=== PATIENT | female | born 1965 | race Caucasian/White ===

== ENCOUNTER 2021-02-13 11:34 | Emergency (ER) | payer OTHER ==
[2021-02-13] MEDS ORDERED: Aspirin 81 MG Tab.Chew PO ONE (11:42)
[2021-02-13] MEDS ORDERED: Ondansetron 4 MG/2 ML SDV IVPUSH ONE (11:42)
[2021-02-13] MEDS ORDERED: Morphine 4 MG/ML Syringe IVPUSH ONE (11:42)
[2021-02-13] MEDS ORDERED: Sodium Chloride 0.9% 2.5 ML Syringe FLUSH PRN (11:43)
[2021-02-13] MEDS ORDERED: Sodium Chloride 0.9% 10 ML Syringe FLUSH PRN (11:43)
[2021-02-13] MEDS ORDERED: Sodium Chloride 0.9% 1,000 ML IV ONE (11:44)
--- NOTE | 2021-02-13 11:46 | PCM.EKG ---
#1 Interpretation EKG Date: 02/13/21 Time: 11:45 EKG Interpretation Comments: EKG: sinus tach, nonspecific ST/T changes, Rate - 103
--- NOTE | 2021-02-13 11:58 | EDM.PDOC ---
ED HPI GENERAL MEDICAL PROBLEM - General Chief Complaint: Chest Pain Stated Complaint: CHEST PAIN Time Seen by Provider: 02/13/21 11:45 Source of Information: Reports: Patient History Limitations: Reports: No Limitations - History of Present Illness INITIAL COMMENTS - FREE TEXT/NARRATIVE: HISTORY AND PHYSICAL: History of present illness: Patient is a 55-year-old female who presents to the emergency room with complaints of left sided chest pain that started about 20 minutes prior to arrival. She states she had just finished eating and initially thought that she had some reflux, but states this pain is different than previous reflux symptoms. Describes the pain as a sharp stabbing pain that radiates into her back. She states nothing is making the pain better or worse. She is anxious and tearful. She states she does have a history of tachycardia, has seen a cardiolgoist for this, but has not had any further problems with this. She has had a full cardiac work up (stress test and "cardiac scan") which was normal. Patient denies any fever, chills, headache, change in vision, syncope or near syncope. Denies any shortness of breath or cough. Denies any abdominal pain, nausea, vomiting, diarrhea, constipation or dysuria. Has not noted any blood in urine or stool. Patient has been eating and drinking appropriately. No history of alcohol or drug abuse. Maternal history of heart disease. Review of systems: As per history of present illness and below otherwise all systems reviewed and negative. Past medical history: As per history of present illness and as reviewed below otherwise noncontributory. Surgical history: As per history of present illness and as reviewed below otherwise noncontributory. Social history: See social history for further information Family history: As per history of present illness and as reviewed below otherwise noncontributory. Physical exam: General: Well developed and well nourished 55 year old female. Alert and orie ntated x 3. Anxious and tearful. Nontoxic in appearance and in no acute distress. Vital signs are stable and have been reviewed by me. Nursing notes were reviewed. HEENT: Atraumatic, normocephalic, pupils equal and reactive bilaterally, negative for conjunctival pallor or scleral icterus, mucous membranes moist, throat clear, neck supple, nontender, trachea midline. No drooling or trismus noted. No meningeal signs. No hot potato voice noted. Lungs: Clear to auscultation bilaterally. No wheezes, rales, or rhonchi. Chest nontender. Normal work of breathing, no accessory muscles used. Heart: S1S2, tachycardia with rate of 105, regular rhythm without overt murmur, gallops, or rubs. No JVD. No peripheral edema Abdomen: Soft, nondistended, nontender. Normoactive bowel sounds. Negative for masses or costovertebral tenderness. Pelvis: Stable nontender. Skin: Intact, warm, dry. No lesions or rashes noted. Hematologic: No petechiae or purpra. Mucosa appropriate color and normal nail bed color and refill. Extremities: Atraumatic, moves all extremities per self without difficulty or deficits, negative for cords or calf pain. Neurovascular unremarkable. Neuro: Awake, alert, oriented. Cranial nerves II through XII unremarkable. Cerebellum unremarkable. Motor and sensory unremarkable throughout. Exam nonfocal. Psychiatric: Mood and affect are appropriate. Normal thought process. Answering questions appropriately. Notes: *This patient was seen and evaluated during the 2019 SARS-CoV-2 novel coronavirus pandemic period. Community viral transmission is ongoing at time of this encounter and the emergency department is operating under pandemic response procedures. Patient is a 55 year old female who presents to the ED with complaints of intense chest pain to her left anterior chest that radiates into her back. She appears anxious and tearful. She has no personal history of heart disease. States she has GERD, felt this could be GERD related because pain started after eating, but this pain is worse than she's experienced in the past. Physical exam is unremarkable with the exception that she appears uncomfortable. Will do cardiac workup and CT her chest to rule out dissection. HEART Score for Major Cardiac Events: History: 1 EK Age: 1 Risk factors: 1 Initial troponin: 0 Score: 3 Wells' Criteria for Pulmonary Embolism Positive indicators: Heart rate Points: Low risk group Patient states her abdomen is starting to "cramp up". Her chest pain has improved after the IV morphine. I will extend the CT to abd/pelvis at this time. Her labs show an elevation in her Lipase. She has received over a liter of IV fluids, no nausea or vomiting. CT of chest/abdomen/pelvis shows no aortic dissection or other acute aortic abnormality. Large left-sided sliding hiatal hernia. There is also a smaller right-sided paraesophageal hernia which is filled with air and fluid. There is no gastric wall thickening or extraluminal air. This could potentially be the cause of the patient`s pain. Recommend surgery consultation. Cholelithiasis. Colonic diverticulosis. Pancrease and liver are unremarkable. Spoke with Dr Sesar Woods about CT results, patient can follow up with general surgeon who performs Mario Fundoplication. Patient's second troponin is within normal limits. She has been pain-free since the morphine, no chest or abdominal pain. Pain is not returned during her ER visit. I have talked with the patient about today's findings, in addition to providing specific details for plan of care. I did offer her admission which she declines. Reassessment at the time of disposition demonstrates that the patient is in no acute distress. They do travel back and forth between [place] and [place], she states she will follow up for general surgery. The patient is stable for discharge, counseling was provided and we discussed in great detail signs and symptoms that would prompt them to return to the Emergency Department. Medication, follow up and supportive care measures were reviewed and discussed. Voices understanding and is agreeable to plan of care. Denies any further questions or concerns at this time. Diagnostics: CBC, CMP, UA, Troponin, EKG, Chest/Abd/Pelvic CT Therapeutics: IV fluids, Morphine, ASA Prescription: Impression: Chest pain nonspecific Hiatal hernia Plan: 1. You were evaluated today on an emergent basis. Your lab work, cardiac enzymes, EKG and chest x-ray are within normal limits. Your CT does show a large left-sided sliding hiatal hernia. There is also a small right-sided paraesophageal hernia. This could potentially cause your epigastric/chest pain. 2. You can alternate Tylenol and ibuprofen as needed for pain and fever management. You could start an 81 mg aspirin once daily if not contraindicated. 3. We encourage you to follow up with your primary care provider and/or recommended specialist in the next few days for re-evaluation and further care/management. 4. If your symptoms should worsen, new symptoms develop or any of the signs and symptoms we discussed should arise please return to the emergency room or call 911 (if needed). Definitive disposition and diagnosis as appropriate pending reevaluation and review of above. chest Pain Score (Numeric/FACES): 7 - Related Data Allergies Allergy/AdvReac Type Severity Reaction Status Date / Time antibiotics Allergy Itching Uncoded 02/13/21 11:44 Home Meds: Home Meds . [No Known Home Meds] 02/13/21 [History] ED ROS GENERAL - Review of Systems Review Of Systems: Comprehensive ROS is negative, except as noted in HPI. ED EXAM, GENERAL - Physical Exam Exam: See Below (See dictation) Course - Vital Signs Last Recorded V/S: Last Vital Signs Temp 98 F 02/13/21 11:41 Pulse 105 H 02/13/21 11:41 Resp 19 02/13/21 11:41 BP 153/101 H 02/13/21 11:41 Pulse Ox 98 02/13/21 11:41 - Orders/Labs/Meds Orders: Active Orders 24 hr Category Date Time Status EKG Documentation Completion [RC] STAT Care 02/13/21 11:43 Active CORONAVIRUS COVID-19 LENARD [MOLEC] Stat Lab 02/13/21 11:44 Ordered UA RFX TERRANCE AND CULT IF INDIC [URIN] Stat Lab 02/13/21 11:44 Ordered Sodium Chloride 0.9% [Normal Saline] 1,000 ml Med 02/13/21 11:44 Active IV STAT Sodium Chloride 0.9% [Saline Flush] Med 02/13/21 11:43 Active 10 ml FLUSH ASDIRECTED PRN Sodium Chloride 0.9% [Saline Flush] Med 02/13/21 11:43 Active 2.5 ml FLUSH ASDIRECTED PRN Saline Lock Insert [OM.PC] Stat Oth 02/13/21 11:43 Ordered Medication Orders Sodium Chloride (Normal Saline) 1,000 mls @ 150 mls/hr IV STAT ONE Stop: 02/13/21 18:23 Last Admin: 02/13/21 11:52 Dose: 150 mls/hr Documented by: KASI Sodium Chloride (Sodium Chloride 0.9% 10 Ml Syringe) 10 ml FLUSH ASDIRECTED PRN PRN Reason: Keep Vein Open Last Admin: 02/13/21 11:54 Dose: 10 ml Documented by: KASI Sodium Chloride (Sodium Chloride 0.9% 2.5 Ml Syringe) 2.5 ml FLUSH ASDIRECTED PRN PRN Reason: Keep Vein Open Last Admin: 02/13/21 11:54 Dose: 2.5 ml Documented by: KASI Labs: Laboratory Tests 02/13/21 02/13/21 02/13/21 Range/Units 11:42 11:42 11:42 WBC 5.30 (4.0-11.0) K/uL RBC 4.68 (4.30-5.90) M/uL Hgb 12.8 (12.0-16.0) g/dL Hct 39.9 (36.0-46.0) % MCV 85.3 (80.0-98.0) fL MCH 27.4 (27.0-32.0) pg MCHC 32.1 (31.0-37.0) g/dL RDW Std Deviation 51.6 (28.0-62.0) fl RDW Coeff of Brenda 17 H (11.0-15.0) % Plt Count 344 (150-400) K/uL MPV 9.10 (7.40-12.00) fL Neut % (Auto) 49.4 (48.0-80.0) % Lymph % (Auto) 39.4 (16.0-40.0) % Mcintosh % (Auto) 7.5 (0.0-15.0) % Eos % (Auto) 2.8 (0.0-7.0) % Baso % (Auto) 0.9 (0.0-1.5) % Neut # (Auto) 2.6 (1.4-5.7) K/uL Lymph # (Auto) 2.1 (0.6-2.4) K/uL Mcintosh # (Auto) 0.4 (0.0-0.8) K/uL Eos # (Auto) 0.2 (0.0-0.7) K/uL Baso # (Auto) 0.1 (0.0-0.1) K/uL Nucleated RBC % 0.0 /100WBC Nucleated RBCs # 0 K/uL INR 0.96 Sodium 141 (136-145) mmol/L Potassium 3.8 (3.5-5.1) mmol/L Chloride 102 (98-107) mmol/L Carbon Dioxide 25.4 (21.0-32.0) mmol/L BUN 8 (7.0-18.0) mg/dL Creatinine 0.7 (0.6-1.0) mg/dL Est Cr Clr Drug Dosing TNP Estimated GFR (MDRD) > 60.0 ml/min Glucose 113 H (74-106) mg/dL Calcium 9.3 (8.5-10.1) mg/dL Total Bilirubin 0.5 (0.2-1.0) mg/dL AST 6 L (15-37) IU/L ALT 23 (14-63) IU/L Alkaline Phosphatase 56 (46-116) U/L Troponin I < 0.050 (0.000-0.056) ng/mL Total Protein 7.8 (6.4-8.2) g/dL Albumin 4.3 (3.4-5.0) g/dL Globulin 3.5 (2.6-4.0) g/dL Albumin/Globulin Ratio 1.2 (0.9-1.6) Lipase (73-393) U/L TSH, Ultra Sensitive 3.74 (0.36-3.74) uIU/mL 02/13/21 02/13/21 Range/Units 11:42 14:29 WBC (4.0-11.0) K/uL RBC (4.30-5.90) M/uL Hgb (12.0-16.0) g/dL Hct (36.0-46.0) % MCV (80.0-98.0) fL MCH (27.0-32.0) pg MCHC (31.0-37.0) g/dL RDW Std Deviation (28.0-62.0) fl RDW Coeff of Brenda (11.0-15.0) % Plt Count (150-400) K/uL MPV (7.40-12.00) fL Neut % (Auto) (48.0-80.0) % Lymph % (Auto) (16.0-40.0) % Mcintosh % (Auto) (0.0-15.0) % Eos % (Auto) (0.0-7.0) % Baso % (Auto) (0.0-1.5) % Neut # (Auto) (1.4-5.7) K/uL Lymph # (Auto) (0.6-2.4) K/uL Mcintosh # (Auto) (0.0-0.8) K/uL Eos # (Auto) (0.0-0.7) K/uL Baso # (Auto) (0.0-0.1) K/uL Nucleated RBC % /100WBC Nucleated RBCs # K/uL INR Sodium (136-145) mmol/L Potassium (3.5-5.1) mmol/L Chloride (98-107) mmol/L Carbon Dioxide (21.0-32.0) mmol/L BUN (7.0-18.0) mg/dL Creatinine (0.6-1.0) mg/dL Est Cr Clr Drug Dosing Estimated GFR (MDRD) ml/min Glucose (74-106) mg/dL Calcium (8.5-10.1) mg/dL Total Bilirubin (0.2-1.0) mg/dL AST (15-37) IU/L ALT (14-63) IU/L Alkaline Phosphatase (46-116) U/L Troponin I < 0.050 (0.000-0.056) ng/mL Total Protein (6.4-8.2) g/dL Albumin (3.4-5.0) g/dL Globulin (2.6-4.0) g/dL Albumin/Globulin Ratio (0.9-1.6) Lipase 525 H (73-393) U/L TSH, Ultra Sensitive (0.36-3.74) uIU/mL Meds: Medications Generic Name Dose Route Start Last Admin Trade Name Freq PRN Reason Stop Dose Admin Sodium Chloride 1,000 mls @ 150 mls/hr 02/13/21 11:44 02/13/21 11:52 Normal Saline IV 02/13/21 18:23 150 mls/hr STAT ONE Administration Sodium Chloride 10 ml 02/13/21 11:43 02/13/21 11:54 Sodium Chloride 0.9% 10 Ml Syringe FLUSH 10 ml ASDIRECTED PRN Administration Keep Vein Open Sodium Chloride 2.5 ml 02/13/21 11:43 02/13/21 11:54 Sodium Chloride 0.9% 2.5 Ml Syringe FLUSH 2.5 ml ASDIRECTED PRN Administration Keep Vein Open Discontinued Medications Generic Name Dose Route Start Last Admin Trade Name Freq PRN Reason Stop Dose Admin Aspirin 324 mg 02/13/21 11:42 02/13/21 11:53 Aspirin 81 Mg Tab.Chew PO 02/13/21 11:43 324 mg ONETIME ONE Administration Iopamidol 100 ml 02/13/21 12:45 02/13/21 12:46 Iopamidol 755 Mg/Ml 500 Ml Multipack Bottle IVPUSH 02/13/21 12:46 100 ml ONETIME STA Administration Morphine Sulfate 4 mg 02/13/21 11:42 02/13/21 11:52 Morphine 4 Mg/Ml Syringe IVPUSH 02/13/21 11:43 4 mg ONETIME ONE Administration Ondansetron HCl 4 mg 02/13/21 11:42 02/13/21 11:53 Ondansetron 4 Mg/2 Ml Sdv IVPUSH 02/13/21 11:43 4 mg ONETIME ONE Administration Departure - Departure Time of Disposition: 15:38 Disposition: Home, Self-Care 01 Clinical Impression: Nonspecific chest pain, Large hiatal hernia, Paraesophageal hernia Instructions: Nonspecific Chest Pain, Adult, [id number] Referrals: PCP,Not In Area [Primary Care Provider] - Forms: ED Department Discharge Additional Instructions: The following information is given to patients seen in the emergency department who are being discharged to home. This information is to outline your options for follow-up care. We provide all patients seen in our emergency department with a follow-up referral. The need for follow-up, as well as the timing and circumstances, are variable depending upon the specifics of your emergency department visit. If you don't have a primary care physician on staff, we will provide you with a referral. We always advise you to contact your personal physician following an emergency department visit to inform them of the circumstance of the visit and for follow-up with them and/or the need for any referrals to a consulting specialist. The emergency department will also refer you to a specialist when appropriate. This referral assures that you have the opportunity for follow-up care with a specialist. All of these measure are taken in an effort to provide you with optimal care, which includes your follow-up. Under all circumstances we always encourage you to contact your private physician who remains a resource for coordinating your care. When calling for follow-up care, please make the office aware that this follow-up is from your recent emergency room visit. If for any reason you are refused follow-up, please contact the [facility] Emergency Department at and asked to speak to the emergency department charge nurse. [facility] [address] [place] [address] [facility] [address] [place] [address] Thank you for choosing the [facility] emergency department in [place] for your medical needs today. It was a pleasure caring for you. Today you were seen in the emergency department for chest pain. 1. You were evaluated today on an emergent basis. Your lab work, cardiac enzymes, EKG and chest x-ray are within normal limits. Your CT does show a large left-sided sliding hiatal hernia. There is also a small right-sided paraesophageal hernia. This could potentially cause your epigastric/chest pain. 2. You can alternate Tylenol and ibuprofen as needed for pain and fever management. You could start an 81 mg aspirin once daily if not contraindicated. 3. We encourage you to follow up with your primary care provider and/or recommended specialist in the next few days for re-evaluation and further care/management. 4. If your symptoms should worsen, new symptoms develop or any of the signs and symptoms we discussed should arise please return to the emergency room or call 911 (if needed). Sepsis Event Note (ED) - Evaluation Sepsis Screening Result: No Definite Risk - Focused Exam Vital Signs: Vital Signs Temp Pulse Resp BP Pulse Ox 02/13/21 11:41 98 F 105 H 19 153/101 H 98 - My Orders Last 24 Hours: My Active Orders 02/13/21 11:43 EKG Documentation Completion [RC] STAT Sodium Chloride 0.9% [Saline Flush] 10 ml FLUSH ASDIRECTED PRN Sodium Chloride 0.9% [Saline Flush] 2.5 ml FLUSH ASDIRECTED PRN Saline Lock Insert [OM.PC] Stat 02/13/21 11:44 CORONAVIRUS COVID-19 LENARD [MOLEC] Stat UA RFX TERRANCE AND CULT IF INDIC [URIN] Stat Sodium Chloride 0.9% [Normal Saline] 1,000 ml IV STAT - Assessment/Plan Last 24 Hours: My Active Orders 02/13/21 11:43 EKG Documentation Completion [RC] STAT Sodium Chloride 0.9% [Saline Flush] 10 ml FLUSH ASDIRECTED PRN Sodium Chloride 0.9% [Saline Flush] 2.5 ml FLUSH ASDIRECTED PRN Saline Lock Insert [OM.PC] Stat 02/13/21 11:44 CORONAVIRUS COVID-19 LENARD [MOLEC] Stat UA RFX TERRANCE AND CULT IF INDIC [URIN] Stat Sodium Chloride 0.9% [Normal Saline] 1,000 ml IV STAT
[2021-02-13 12:23] LABS: BLOOD UREA NITROGEN,BUN 8 mg/dL (7.0-18.0); CARBON DIOXIDE,CO2 25.4 mmol/L (21.0-32.0); CHLORIDE,CL 102 mmol/L (98-107); GLUCOSE RANDOM 113 mg/dL (74-106); POTASSIUM,K 3.8 mmol/L (3.5-5.1); SODIUM,NA 141 mmol/L (136-145)
[2021-02-13] MEDS ORDERED: Iopamidol 755 MG/ML 500 ML Multipack Bottle IVPUSH STA (12:45)
--- NOTE | 2021-02-13 13:41 | CT ---
INDICATION: Acute onset back pain radiating to the abdomen TECHNIQUE: CT chest without contrast and CT chest, abdomen and pelvis acquired with 100 cc Isovue 370 IV contrast, dissection protocol. COMPARISON: None FINDINGS: Chest: Cardiovascular structures: The unenhanced images demonstrate no evidence of aortic intramural hematoma. The entire aorta is normal in caliber and there is no sign of aortic dissection. Heart size is normal. Mediastinum and hedy: There is a large left-sided sliding hiatal hernia with a smaller, right-sided paraesophageal hernia which is filled with air and fluid. There is no gastric wall thickening or extraluminal air. Lungs: Clear. Pleura and pericardium: No effusions. Chest wall and axilla: No mass or adenopathy. Bilateral breast implants. Bones: Unremarkable for age. Abdomen and Pelvis: Liver: Unremarkable. Spleen: Unremarkable. Pancreas: Unremarkable. Gallbladder and bile ducts: Cholelithiasis. Adrenal glands: Unremarkable. Kidneys: Unremarkable. GI tract: Colonic diverticulosis. Vascular structures: Unremarkable. Lymph nodes: Unremarkable. Miscellaneous: Unremarkable. No free air or significant free fluid. Pelvic Organs: Unremarkable. Bones: Unremarkable for age. IMPRESSION: No aortic dissection or other acute aortic abnormality. Large left-sided sliding hiatal hernia. There is also a smaller right-sided paraesophageal hernia which is filled with air and fluid. There is no gastric wall thickening or extraluminal air. This could potentially be the cause of the patient`s pain. Recommend surgery consultation. Cholelithiasis. Colonic diverticulosis. Findings discussed with Dr. Lawrence at 1:38 p.m. on February 13, 2021. Please note that all CT scans at this facility use dose modulation, iterative reconstruction, and/or weight-based dosing when appropriate to reduce radiation dose to as low as reasonably achievable. Dictated by Betzaida Bonilla MD @ 02/13/2021 1:40:[address] Betzaida Bonilla @ Feb 13 2021 1:40PM
--- NOTE | 2021-02-13 13:54 | CT ---
INDICATION: Acute onset back pain radiating to the abdomen TECHNIQUE: CT chest without contrast and CT chest, abdomen and pelvis acquired with 100 cc Isovue 370 IV contrast, dissection protocol. COMPARISON: None FINDINGS: Chest: Cardiovascular structures: The unenhanced images demonstrate no evidence of aortic intramural hematoma. The entire aorta is normal in caliber and there is no sign of aortic dissection. Heart size is normal. Mediastinum and hedy: There is a large left-sided sliding hiatal hernia with a smaller, right-sided paraesophageal hernia which is filled with air and fluid. There is no gastric wall thickening or extraluminal air. Lungs: Clear. Pleura and pericardium: No effusions. Chest wall and axilla: No mass or adenopathy. Bilateral breast implants. Bones: Unremarkable for age. Abdomen and Pelvis: Liver: Unremarkable. Spleen: Unremarkable. Pancreas: Unremarkable. Gallbladder and bile ducts: Cholelithiasis. Adrenal glands: Unremarkable. Kidneys: Unremarkable. GI tract: Colonic diverticulosis. Vascular structures: Unremarkable. Lymph nodes: Unremarkable. Miscellaneous: Unremarkable. No free air or significant free fluid. Pelvic Organs: Unremarkable. Bones: Unremarkable for age. IMPRESSION: No aortic dissection or other acute aortic abnormality. Large left-sided sliding hiatal hernia. There is also a smaller right-sided paraesophageal hernia which is filled with air and fluid. There is no gastric wall thickening or extraluminal air. This could potentially be the cause of the patient`s pain. Recommend surgery consultation. Cholelithiasis. Colonic diverticulosis. Findings discussed with Dr. Lawrence at 1:38 p.m. on February 13, 2021. Please note that all CT scans at this facility use dose modulation, iterative reconstruction, and/or weight-based dosing when appropriate to reduce radiation dose to as low as reasonably achievable. Dictated by Betzaida Bonilla MD @ 02/13/2021 1:40:39 PM Signed by: Betzaida Bonilla MD @02/13/2021 1:40:39 PM (Electronic Signature) DW/Dictated by: Betzaida Bonilla MD @ 02/13/2021 1:43:00 PM (Electronically Signed)
== END 2021-02-13 15:53 | disposition home or self-care (01) ==
LOC: MW.ED 11:34
DX: K44.9 Diaphragmatic hernia without obstruction or gangrene (principal); Z88.1 Allergy status to other antibiotic agents
CPT/HCPCS: 36415; 71275; 74175; 80053; 83690; 84443; 84484; 85025; 85610; 93005; 96374; 96375; 99285; A9270; J2270; J2405; J7030; Q9967; 93010; 99284